=== PATIENT | male | born 1930 | race Caucasian/White ===

== ENCOUNTER → 2017-06-04 12:13 | Outpatient (CLI) | payer SELFPAY ==
[2017-06-04 15:01] LABS: BASOPHILS 0.4 % (0-2); EOSINOPHILS 1.7 % (0-7); HEMATOCRIT 32.9 % (42.0-54.0); IMMATURE GRANULOCYTES 0.2 % (0-5); LYMPHOCYTES 36.5 % (15-50); MCH 30.3 pg (26.0-34.0); MCHC 30.4 g/dL (31.0-37.0); MCV 99.7 fL (80.0-100.0); MONOCYTES 5.7 % (2-11); NEUTROPHILS 55.5 % (40-80); PLATELET COUNT 208 10x3/uL (130-400); RDW 15.4 % (11.5-14.5); WBC 9.7 10x3/uL (4.8-10.8)
== END | disposition home or self-care (01) ==
LOC: D.LABREF 12:13
PROVIDERS: Internal Medicine Hematology & Oncology
DX: L89.622 Pressure ulcer of left heel, stage 2 (principal)

== ENCOUNTER → 2017-06-11 15:42 | Outpatient (CLI) | payer SELFPAY ==
[2017-06-11 16:17] LABS: BASOPHILS 0.5 % (0-2); EOSINOPHILS 1.5 % (0-7); HEMATOCRIT 33.6 % (42.0-54.0); HEMOGLOBIN 10.2 g/dL (13.5-17.5); IMMATURE GRANULOCYTES 0.2 % (0-5); MCH 29.4 pg (26.0-34.0); MCHC 30.4 g/dL (31.0-37.0); MCV 96.8 fL (80.0-100.0); MEAN PLATELET VOLUME 9.7 fL (7.4-10.4); MONOCYTES 7.5 % (2-11); NEUTROPHILS 58.3 % (40-80); PLATELET COUNT 200 10x3/uL (130-400); RBC 3.47 10x6/uL (4.20-6.10); RDW 14.7 % (11.5-14.5); WBC 11.3 10x3/uL (4.8-10.8)
== END | disposition home or self-care (01) ==
LOC: D.LABREF 15:42
PROVIDERS: Internal Medicine Hematology & Oncology
DX: L89.622 Pressure ulcer of left heel, stage 2 (principal)

== ENCOUNTER → 2017-06-18 12:16 | Outpatient (CLI) | payer MEDICARE ==
[2017-06-18 13:40] LABS: BASOPHILS 0.4 % (0-2); EOSINOPHILS 1.3 % (0-7); HEMATOCRIT 37.3 % (42.0-54.0); HEMOGLOBIN 11.1 g/dL (13.5-17.5); IMMATURE GRANULOCYTES 0.1 % (0-5); MCH 28.7 pg (26.0-34.0); MCHC 29.8 g/dL (31.0-37.0); MCV 96.4 fL (80.0-100.0); MONOCYTES 8.5 % (2-11); NEUTROPHILS 51.7 % (40-80); PLATELET COUNT 217 10x3/uL (130-400); RBC 3.87 10x6/uL (4.20-6.10); RDW 14.7 % (11.5-14.5); WBC 8.9 10x3/uL (4.8-10.8)
== END | disposition home or self-care (01) ==
LOC: D.LABREF 12:16
PROVIDERS: Internal Medicine Hematology & Oncology
DX: L89.622 Pressure ulcer of left heel, stage 2 (principal)

== ENCOUNTER 2018-01-23 09:45 | Emergency (ER) | payer MEDICARE ==
[~2018-01-23] VITALS: Ht 188 cm; Wt 106.8 kg
[2018-01-23 09:46] VITALS: Ht 188 cm; Wt 106.8 kg
[2018-01-23] MEDS ORDERED: LIPITOR40 MG PO (09:47)
[2018-01-23] MEDS ORDERED: PACERONE200 MG PO ×2 (09:47→09:50)
[2018-01-23] MEDS ORDERED: FUROSEMIDE40 MG PO (09:47)
[2018-01-23] MEDS ORDERED: GLYBURIDE5 M1 PO (09:48)
[2018-01-23] MEDS ORDERED: JANUVIA50 MG PO (09:48)
[2018-01-23] MEDS ORDERED: LANTUS (09:49)
[2018-01-23] MEDS ORDERED: XALATAN 0.0052.5 ML EACH EYE (09:49)
[2018-01-23] MEDS ORDERED: LISINOPRIL5 MG PO (09:50)
[2018-01-23] MEDS ORDERED: MULTI-DAY VITAM1 TAB PO (09:50)
[2018-01-23] MEDS ORDERED: ELOCON45 GM TOPICAL (09:50)
[2018-01-23] MEDS ORDERED: PLAVIX75 MG PO (09:50)
[2018-01-23] MEDS ORDERED: SYNTHROID75 MCG PO (09:50)
[2018-01-23] MEDS ORDERED: ZOCOR20 MG PO (09:51)
[2018-01-23] MEDS ORDERED: SIMBRINZA 1%-0.28 ML EACH EYE (09:51)
[2018-01-23 10:13] LABS: BASOPHILS 0.7 % (0-2); EOSINOPHILS 4.8 % (0-7); HEMATOCRIT 34.9 % (42.0-54.0); HEMOGLOBIN 10.8 g/dL (13.5-17.5); IMMATURE GRANULOCYTES 0.1 % (0-5); LYMPHOCYTES 32.2 % (15-50); MCH 28.5 pg (26.0-34.0); MCHC 30.9 g/dL (31.0-37.0); MCV 92.1 fL (80.0-100.0); MEAN PLATELET VOLUME 10.9 fL (7.4-10.4); MONOCYTES 9.5 % (2-11); NEUTROPHILS 52.7 % (40-80); RBC 3.79 10x6/uL (4.20-6.10); RDW 16.9 % (11.5-14.5); WBC 8.6 10x3/uL (4.8-10.8)
[2018-01-23 10:15] LABS: PLATELET COUNT 130 10x3/uL (130-400)
[2018-01-23 10:29] LABS: ALBUMIN 2.7 g/dL (3.4-5.0); ANION GAP 11.3 mmol/L (8-16); BILIRUBIN - TOTAL 0.32 mg/dL (0.2-1.3); CALCIUM 8.4 mg/dL (8.5-10.1); CARBON DIOXIDE 27.1 mmol/L (21.0-32.0); CREATININE - SERUM 2.3 mg/dL (0.6-1.3); POTASSIUM - SERUM 5.4 mmol/L (3.5-5.1); PROTEIN - SERUM 6.5 g/dL (6.4-8.2)
[2018-01-23 10:33] LABS: MAGNESIUM - SERUM 2.3 mg/dL (1.8-2.4)
[2018-01-23 10:37] LABS: TROPONIN-I 0.019 ng/mL (0.000-0.060)
[2018-01-23 11:14] LABS: APPEARANCE CLEAR (CLEAR); COLOR YELLOW (YELLOW); SPECIFIC GRAVITY 1.005 (1.005-1.020)
[2018-01-23 11:15] LABS: BACTERIA FEW /hpf (NONE SEEN); BILIRUBIN NEGATIVE (NEGATIVE); EPITHELIAL CELLS 0-5 /hpf (0-5); GLUCOSE NEGATIVE (NEGATIVE); KETONE NEGATIVE (NEGATIVE); NITRITE NEGATIVE (NEGATIVE); PROTEIN TRACE mg/dL (NEGATIVE); RED CELLS - URINE RARE /hpf (0-5); UROBILINOGEN NORMAL (NORMAL)
[2018-01-23 13:44] LABS: ANION GAP 12.8 mmol/L (8-16); CALCIUM 8.4 mg/dL (8.5-10.1); CREATININE - SERUM 2.3 mg/dL (0.6-1.3); POTASSIUM - SERUM 4.8 mmol/L (3.5-5.1)
[2018-01-23 14:40] VITALS: BP 179/86
== END 2018-01-23 14:35 | disposition home or self-care (01) ==
LOC: D.ER 09:45
PROVIDERS: Family Medicine
DX: R55 Syncope and collapse (principal); N18.9 Chronic kidney disease, unspecified; R79.89 Other specified abnormal findings of blood chemistry; E78.5 Hyperlipidemia, unspecified; E11.649 Type 2 diabetes mellitus with hypoglycemia without coma; E07.9 Disorder of thyroid, unspecified; R00.1 Bradycardia, unspecified; I45.2 Bifascicular block

== ENCOUNTER 2018-06-23 08:45 | Day surgery (SDC) | payer MEDICARE ==
[~2018-06-23] VITALS: Ht 188 cm; Wt 103.0 kg
--- NOTE | ~2018-06-23 | OP ---
PATIENT NAME: MALCOLM DAN MEDICAL RECORD: [id number] :[birth year] LOCATION:[facility] ADMISSION DATE: SURGEON: INNA VENCES MD DATE OF OPERATION: 06/23/2018 PREOPERATIVE DIAGNOSIS: Chronic kidney disease stage V. POSTOPERATIVE DIAGNOSIS: Chronic kidney disease stage V. REFERRING PHYSICIAN: Dr. Mclean. SURGEON: Inna Vences MD ANESTHESIA: Regional nerve block plus IV sedation and monitored per SALES DEVELOPER. PREOPERATIVE NOTE: Mr. Dan is an 88-year-old white male from [place]. He has chronic renal insufficiency and Dr. Mclean referred him to me for dialysis access. He is 88 years old and ordinarily I would not consider creating an AV fistula. However, his tissues and blood vessels at least in his arms are physiologically younger than 88 with large cephalic veins standing out on the right forearm and wrist and bounding radial artery pulse. DESCRIPTION OF PROCEDURE: Under anesthesia, the patient was placed in supine position and his right arm was prepped and draped in a sterile manner. I applied topical nitroglycerin and used a Igncaio drain for a proximal venous tourniquet and examined him with Duplex ultrasound and noted the cephalic vein from wrist to cephalic arch to be patent and of adequate caliber, especially in the forearm and there was runoff to the basilic as well from the mid forearm level. The radial artery was quite large and demonstrated very minimal amounts of calcification and atherosclerotic plaquing. I decided after observing this for a while that we should go ahead and try to make a fistula, even a wrist radiocephalic Raji type AV fistula in this 88 year old man. I made a longitudinal incision and exposed the radial artery and controlled with doubly looped Silastic tapes. Small arterial branches were divided with electrocautery. The cephalic vein was about an inch away from the radial artery laterally and on the dorsum of the forearm, and it was necessary to create a significant flap in order to expose and mobilize that vein. It was ligated and divided distally, was then bevelled and spatulated, irrigated with heparin and saline, and hydrostatically dilated. It was a very satisfactory vein for an AV fistula. The artery was occluded. A small arteriotomy about 6-7 mm in length was made and the vein was anastomosed end-to-side of artery with running 7-0 Prolene. The artery was flushed with heparinized saline also. When the occluding loops and clamps were released, excellent flow developed immediately within the fistula with strong pulsation and a strong thrill and excellent continuous pulsatile Doppler flow. I examined him with the duplex ultrasound and noted turbulent pulsatile flow in the forearm and via the cephalic vein up into the upper arm and also via the median cubital to the basilic vein. There was one large collateral or tributary vein on the dorsum of the forearm, which was diverting flow and I exposed this with a small incision, encircled it with a 2-0 silk and closed additionally with a Hemoclip. That incision was subsequently closed with interrupted simple 4-0 Prolene sutures. The wound was irrigated with Ancef/gentamicin solution and hemostasis obtained OPERATIVE REPORT [id number] MALCOLM DAN with electrocautery and also with a couple of 3-0 Vicryl suture ligatures. The patient was rather oozy and was treated at that point with 20 mcg of DDAVP intravenously. The wound was closed with interrupted inverted 3-0 Vicryl and then running intracuticular 4-0 Monocryl and Dermabond glue. It was dressed with Maxorb Ag, Tegaderm, and Cavilon skin prep. The patient was returned to the outpatient department. PLAN: The patient will need to come back to see me in my office next week. In the meantime, he will go home today and I will ask home health to check on him daily if they can, starting tomorrow. 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 He did agree to have someone lined up to look after both of them at least for the first night after surgery and hopefully that he does have somebody at home for that. I have written a prescription for small number of tramadol 50 mg, he can take 1 p.o. every 4 hours p.r.n. pain. He is advised to elevate his arm and hand on pillows and when possible lie down in a reclined so that he can elevate them on pillows and reach a height higher than his heart comfortably. He is advised to expect some extensive bruising and discoloration of his arm and some swelling. If this fistula is not maturing at a rapid rate, when I see him in the office either this coming first postop visit or the next, I will not unnecessarily delay returning him to surgery for an AV graft. Blood loss during the operation was small, 5 cc perhaps. All sponges, instruments, and needles were accounted for. No drain was used. No surgical specimen was submitted for histopathology. TRANSINT:[id number] Voice Confirmation ID: [id number] DOCUMENT ID: [id number] INNA VENCES MD CC: ANDERS MCLEAN MD [id number] DICTATION DATE: 06/23/18 1533 SCRAPER LOADER OPERATOR: 06/23/18 1717 [facility] [place] 06/23/18 [id number] [place] [id number]
[~2018-06-23 08:45] MED LIST: ELOCON45 GM TOPICAL; FUROSEMIDE40 MG PO; GLYBURIDE5 M1 PO; JANUVIA50 MG PO; LANTUS; LIPITOR40 MG PO; LISINOPRIL5 MG PO; MULTI-DAY VITAM1 TAB PO; PACERONE200 MG PO; PLAVIX75 MG PO; SIMBRINZA 1%-0.28 ML EACH EYE; SYNTHROID75 MCG PO; XALATAN 0.0052.5 ML EACH EYE; ZOCOR20 MG PO
[2018-06-23 09:22] LABS: BASOPHILS 0.9 % (0-2); EOSINOPHILS 6.1 % (0-7); HEMATOCRIT 36.1 % (42.0-54.0); HEMOGLOBIN 11.3 g/dL (13.5-17.5); IMMATURE GRANULOCYTES 0.1 % (0-5); LYMPHOCYTES 28.9 % (15-50); MCH 29.6 pg (26.0-34.0); MCHC 31.3 g/dL (31.0-37.0); MCV 94.5 fL (80.0-100.0); MEAN PLATELET VOLUME 10.6 fL (7.4-10.4); MONOCYTES 6.7 % (2-11); NEUTROPHILS 57.3 % (40-80); PLATELET COUNT 131 10x3/uL (130-400); RBC 3.82 10x6/uL (4.20-6.10); RDW 14.5 % (11.5-14.5); WBC 9.8 10x3/uL (4.8-10.8)
[2018-06-23 09:35] LABS: ANION GAP 13.3 mmol/L (8-16); CALCIUM 8.6 mg/dL (8.5-10.1); CARBON DIOXIDE 28.7 mmol/L (21.0-32.0); CREATININE - SERUM 3.6 mg/dL (0.6-1.3)
[2018-06-23 09:50] LABS: INR 1.03 (0.85-1.17)
[2018-06-23 10:19] VITALS: BP 128/85; Ht 188 cm; Wt 103.0 kg
--- NOTE | 2018-06-23 10:33 | NUR ---
1030 PT REFUSED TYNENOL
[2018-06-23] MEDS ORDERED: ULTRAM50 MG PO (15:15)
== END 2018-06-23 17:00 | disposition home or self-care (01) ==
LOC: D.OPS 08:45
PROVIDERS: ATTEND Surgery
DX: N18.5 Chronic kidney disease, stage 5 (principal); Z01.812 Encounter for preprocedural laboratory examination

== ENCOUNTER 2018-07-23 13:05 | Emergency (ER) | payer MEDICARE ==
[~2018-07-23] VITALS: Ht 188 cm; Wt 100.0 kg
[~2018-07-23 13:05] MED LIST changes: +ULTRAM50 MG PO
[2018-07-23 13:25] VITALS: Ht 188 cm; Wt 100.0 kg
[2018-07-23] MEDS ORDERED: MUPIROCIN22 GM TOPICAL (14:24)
[2018-07-23 14:49] VITALS: BP 157/66
== END 2018-07-23 14:50 | disposition home or self-care (01) ==
LOC: D.ER 13:05
DX: L01.00 Impetigo, unspecified (principal)